=== PATIENT | male | born 1970 | race Caucasian/White ===

== ENCOUNTER 2019-11-29 11:30 | Inpatient (IN) | payer SELFPAY ==
[~2019-11-29] VITALS: Ht 193 cm; Wt 67.7 kg
[~2019-11-29 11:30] MED LIST: LEVAQUIN 750MG750 M1 PO; NORCO 325 MG-51 TAB PO; PYRIDIUM 100MG100 MG PO; ZANTAC 150MG T150 MG PO; ZOFRAN ODT8 MG PO
[2019-12-19] VITALS (12 sets, daily range): BP systolic 104–121; BP diastolic 60–76; PULSE 58–92; TEMP 97.8–98.7
[2019-12-20 04:00] VITALS: BP 101/68; PULSE 56; TEMP 97.4
[2019-12-20 09:20] VITALS: BP 105/64; PULSE 64; TEMP 98
[2019-12-20 12:14] VITALS: BP 110/66; PULSE 62; TEMP 97.9
[2019-12-20 16:23] VITALS: BP 109/64; PULSE 71; TEMP 98
== END 2019-12-20 16:40 | disposition home or self-care (01) | DRG 661 ==
LOC: INPTSU 12-19 08:27 → SURG 12-19 10:30
PROVIDERS: ADMIT Urology
PROC: 8E0W4CZ Robotic Assisted Procedure of Trunk Region, Percutaneous Endoscopic Approach (ICD-10-PCS; 2019-12-19)
PROC: 0TQ34ZZ Repair Right Kidney Pelvis, Percutaneous Endoscopic Approach (ICD-10-PCS; principal; 2019-12-19 10:30)
DX: N13.5 Crossing vessel and stricture of ureter without hydronephrosis (principal)
CPT/HCPCS: A4314; C1729; C1769; C2617; J0690; J1100; J1170; J1650; J1885; J2250; J2270; J2405; J2704; J2795; J3010; J7120

== ENCOUNTER 2019-12-07 11:05 | Observation (INO) | payer SELFPAY ==
[~2019-12-07] VITALS: Ht 193 cm; Wt 70.4 kg
[2019-12-07] VITALS (12 sets, daily range): BP systolic 125–148; BP diastolic 70–92; PULSE 64–91; TEMP 97.8–98.6
--- NOTE | 2019-12-07 13:10 | NUR ---
pt to ct room per bed. Pt transferred per ambulation to ct table and laying prone on ct table. Monitors applied. O2 on at 2l/nc. Pt reports pain to right side of back at this time. Pt states it is tender to the touch.
--- NOTE | 2019-12-07 13:20 | NUR ---
Dr Arora in and talks with pt regarding procedure.
--- NOTE | 2019-12-07 13:40 | NUR ---
Pt had been pain free after initial medication given. Due to pressure at site pt reports he is having alot of pressure/pain. 1504 Pt given dose of fentanyl 50 mcg per verbal order of Dr Arora.
--- NOTE | 2019-12-07 13:45 | NUR ---
Neph tube in place in right kidney, draining blood tinged urine and progressing to bourne red urine. Huang bag attached to neph tube for drainage.
--- NOTE | 2019-12-07 16:11 | NUR ---
Vice President Of Advertising met with patient to discuss discharge planning. Patient lives alone in [place] and sees Dr. Martinez for primary care. Patient obtains medications from [facility]. Patient states his mother, Rowena (cell#[phone], home#[phone]) is his emergency contact. Patient does not use any DME and reports independence with ADLS. Patient states his mom Rowena or his sister will pick him up tonight. SW provided update to patient's RN, Ana María. No additional needs at this time.
--- NOTE | 2019-12-07 18:15 | NUR ---
Patient admitted to room 324 at lunchtime. Commercial Loan Analyst set up for pain. Morphine managed pain. saw patient & reviewed tube placement, he remained NPO and He did well post right nephrostomy tube placement. Erick Driver rounded & discharge orders obtained. Patient tolerated general diet. no Nausea. We reviewed all discharge teaching. Tube care discussed & patient provided with dressing supplies. Patient neph tube applied to a leg bag. He was educated on both bass & leg bag. Patient to return to hospital For surgery in 9 day. He is aware. He was provided with a note for work. He denies questions or concerns. Iv removed. Patient wheeled out with all belongings. His parents taking him home.
== END 2019-12-07 18:15 | disposition home health service (06) ==
LOC: SURG 11:05
PROVIDERS: ADMIT Urology
DX: R10.9 Unspecified abdominal pain (principal); R31.9 Hematuria, unspecified; Z88.8 Allergy status to other drugs, medicaments and biological substances; Z79.899 Other long term (current) drug therapy
CPT/HCPCS: G0378; J2250; J2270; J3010; J7030

== ENCOUNTER 2021-03-03 05:13 | Day surgery (SDC) | payer OTHER ==
[~2021-03-03] VITALS: Ht 193 cm; Wt 68.5 kg
[2021-03-03 06:02] VITALS: BP 131/74; PULSE 69; TEMP 97.8
[2021-03-03 08:38] VITALS: BP 105/64; PULSE 72; TEMP 97.6
--- NOTE | 2021-03-03 08:38 | NUR ---
Patient returned via cart. Alert and oriented. Postop op vitals started. Tea and cracker provided. Mother at bedside. Rails up, non slip socks, call light in reach.
[2021-03-03] MEDS ORDERED: NORCO 325 MG-51 TAB PO (08:41)
[2021-03-03 08:53] VITALS: BP 123/77; PULSE 53
--- NOTE | 2021-03-03 08:53 | NUR ---
Patient high fowlers in bed. Alert and oriented. Tolerating food and drink well. Denies any discomfort.
[2021-03-03 09:08] VITALS: BP 134/72; PULSE 51
--- NOTE | 2021-03-03 09:08 | NUR ---
Patient sitting high romero in bed. Vitals stable. Denies discomfort. Operative site clean, dry and intact. Tolerating food and drink well.
--- NOTE | 2021-03-03 09:30 | NUR ---
Reviewed discharge instructions with patient and mother, both verbalized understanding. Discontinued IV with no complications. Patient up to bathroom, able to void without difficulty. Instructed to dress and open door when ready for discharge.
--- NOTE | 2021-03-03 09:50 | NUR ---
Patient trasnported by outpatient RN to personal vehicle to be driven home by mother.
== END 2021-03-03 09:50 | disposition home or self-care (01) ==
LOC: SDCO 05:13
DX: K40.90 Unilateral inguinal hernia, without obstruction or gangrene, not specified as recurrent (principal); Z12.11 Encounter for screening for malignant neoplasm of colon; Z80.0 Family history of malignant neoplasm of digestive organs; F17.210 Nicotine dependence, cigarettes, uncomplicated; Z20.822 Contact with and (suspected) exposure to COVID-19
CPT/HCPCS: C1781; J0690; J2704; J2765; J3010; J7120

== ENCOUNTER 2021-12-29 00:11 | Emergency (ER) | payer OTHER ==
[~2021-12-29] VITALS: Ht 193 cm; Wt 81.8 kg
[2021-12-29 00:26] VITALS: TEMP 97.4
[2021-12-29 00:50] LABS: BASO % 0.7 % (0.0-2.0); EOS % 0.7 % (0.0-4.0); GRAN # 3.8 K/mm3 (1.4-6.5); GRAN % 68.9 % (42.2-75.2); HEMATOCRIT 41.8 % (42.0-52.0); HEMOGLOBIN 14.7 g/dl (13.5-18.0); LYMPH # 1.1 K/mm3 (1.2-3.4); LYMPH % 20.7 % (20.0-51.0); MEAN CELL VOLUME 97 fl (80.0-100.0); MEAN CORPUSCULAR HEMOGLOBIN 34 pg (27-31); MEAN CORPUSCULAR HGB CONC 35 g/dl (33.0-37.0); MEAN PLATELET VOLUME 9.1 fl (7.4-10.4); MONO # 0.5 K/mm3 (0.1-0.6); MONO % 8.5 % (1.7-9.3); PLATELET COUNT 183 K/mm3 (130-400); RED BLOOD COUNT 4.31 M/mm3 (4.20-5.60); REDCELL DISTRIBUTION WIDTH-CV 14.1 % (11.5-14.5)
[2021-12-29 01:08] LABS: ALBUMIN 4.3 gm/dL (3.5-5.0); BILIRUBIN,TOTAL 0.5 mg/dL (0.2-1.2); CALCIUM 9.2 mg/dL (8.4-10.2); CREATININE, serum 0.72 mg/dL (0.72-1.25); POTASSIUM 3.7 mmol/L (3.5-4.5); TOTAL PROTEIN 7.4 gm/dL (6.2-8.1)
[2021-12-29 01:30] LABS: COLLECTION METHOD CLEAN CATCH
[2021-12-29 01:37] LABS: PH 7 (5-8); SQUAMOUS EPITHELIAL None Seen /hpf (0-10); URINE APPEARANCE Clear (CLEAR/HAZY); URINE BACTERIA None Seen /hpf (NONE SEEN); URINE BILIRUBIN Negative (NEGATIVE); URINE BLOOD 1+ (NEGATIVE); URINE COLOR Straw (YELLOW); URINE GLUCOSE Negative (NEGATIVE); URINE KETONE Negative (NEGATIVE); URINE LEUKOCYTE ESTERASE Negative (NEGATIVE); URINE NITRATE Negative (NEGATIVE); URINE PROTEIN(semi-quant) Negative (NEGATIVE); URINE RBC None Seen /hpf (0-2); URINE UROBILINOGEN Negative (NEGATIVE)
[2021-12-29 07:29] VITALS: BP 142/98; PULSE 77
== END 2021-12-29 07:30 | disposition short-term general hospital (02) ==
LOC: COL.ER 00:11
PROVIDERS: Family Medicine
DX: S12.400A Unspecified displaced fracture of fifth cervical vertebra, initial encounter for closed fracture (principal); S01.01XA Laceration without foreign body of scalp, initial encounter; F10.229 Alcohol dependence with intoxication, unspecified; R40.2410 Glasgow coma scale score 13-15, unspecified time; Z23 Encounter for immunization; Z28.310 Unvaccinated for COVID-19; Z87.891 Personal history of nicotine dependence; W10.8XXA Fall (on) (from) other stairs and steps, initial encounter; Y90.8 Blood alcohol level of 240 mg/100 ml or more
CPT/HCPCS: J2060; J3010; J7120